=== PATIENT | female | born 2000 | race Caucasian/White ===

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

== ENCOUNTER → 2021-01-16 19:55 | Outpatient (CLI) | payer BC, SELFPAY | PROVIDERS: Visit Provider Nurse Practitioner Family | DX: Z20.822 Contact with and (suspected) exposure to COVID-19 (principal); J02.9 Acute pharyngitis, unspecified | CPT/HCPCS: C9803; U0003; U0005 ==

== ENCOUNTER → 2021-04-29 16:26 | Outpatient (CLI) | payer BC, SELFPAY ==
[2021-04-29 17:15] LABS: Basophils # 0.1 K/mm3 (0-0.2); Basophils % 0.5 % (0.1-2.0); Eosinophils # 0.1 K/mm3 (0.0-0.4); Eosinophils % 0.8 % (0.1-12.0); Hematocrit 42.3 % (37.0-47.0); Hemoglobin 13.4 g/dL (12.2-16.2); Lymphocytes # 3.1 K/mm3 (0.7-4.5); Lymphocytes % 29.1 % (10-50); Mean Corpuscular HGB Conc 31.8 g/dL (31.8-35.4); Mean Corpuscular Hemoglobin 29.8 pg (27.0-31.2); Mean Corpuscular Volume 93.9 fl (81-99); Mean Platelet Volume 7.5 fl (7.4-10.4); Monocytes # 0.4 K/mm3 (0.1-1.0); Monocytes % 3.7 % (1.7-9.3); Neutrophils # 7.1 K/mm3 (1.8-7.8); Neutrophils % 65.9 % (37.0-80.0); Platelet Count 328 K/mm3 (142-424); Red Cell Distribution Width 12.3 % (11.5-17.5); White Blood Count 10.8 K/mm3 (4.5-13.0)
[2021-05-01 10:14] LABS: HSV 1 IgG, Type Spec <0.91 index (0.00-0.90); HSV 2 IgG, Type Spec <0.91 index (0.00-0.90); Rubella Antibodies, IgG 3.17 index (Immune >0.99)
[2021-05-01 12:35] LABS: HIV Screen 4th Generation wRfx Non Reactive (Non Reactive); Hepatitis B Surface Antigen Negative (Negative); Hepatitis C Antibody <0.1 s/co ratio (0.0-0.9); Rapid Plasma Reagin Ab Titer Non Reactive (NonRea<1:1)
[2021-05-01 22:08] LABS: Neisseria gonorrhoeae, NAA Negative (Negative)
== END ==
PROVIDERS: PCP Nurse Practitioner Family; Visit Provider Nurse Practitioner Obstetrics & Gynecology
DX: Z72.51 High risk heterosexual behavior (principal)
CPT/HCPCS: 36415; 85025; 86592; 86695; 86703; 86762; 86790; 86850; 87340; 87380; 87491; 87591; G0432

== ENCOUNTER 2021-11-30 15:49 | Emergency (ER) | payer OTHER, BC, SELFPAY ==
[2021-11-30 15:51] VITALS: BP 130/68; PULSE 77; RESP 16; TEMP 37.1; O2SAT 98; BMI 20.4
[2021-11-30 16:15] VITALS: BMI 18.3
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
[2021-11-30 16:30] VITALS: BP 123/63; PULSE 68; RESP 20
--- NOTE | 2021-11-30 16:58 | PC.NURSE ---
pt given ice packs for wrist pain
[2021-11-30 17:00] VITALS: BP 106/60; PULSE 75; RESP 20
[2021-11-30 17:30] VITALS: BP 116/64; PULSE 72; RESP 20; O2SAT 98
[2021-11-30 18:00] VITALS: BP 102/63; PULSE 66; RESP 20; O2SAT 98
--- NOTE | 2021-11-30 18:00 | PC.NURSE ---
dsd applied to lt wrist
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
[2021-11-30 18:57] VITALS: BP 112/65; PULSE 78; RESP 16; TEMP 36.7; O2SAT 97
== END 2021-11-30 18:59 | disposition home or self-care (01) ==
PROVIDERS: Emergency Provider Emergency Medicine; PCP Nurse Practitioner Family
DX: S60.211A Contusion of right wrist, initial encounter (principal); S60.212A Contusion of left wrist, initial encounter; S60.221A Contusion of right hand, initial encounter; T23.272A Burn of second degree of left wrist, initial encounter; T31.0 Burns involving less than 10% of body surface; V47.0XXA Car driver injured in collision with fixed or stationary object in nontraffic accident, initial encounter; W22.11XA Striking against or struck by driver side automobile airbag, initial encounter; Y93.C2 Activity, hand held interactive electronic device
CPT/HCPCS: 73110; 73130; 99283

== ENCOUNTER 2021-12-02 10:29 | Emergency (ER) | payer OTHER, BC, SELFPAY ==
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
[2021-12-02 11:00] VITALS: BP 112/70; PULSE 120; RESP 18; TEMP 38.7; O2SAT 99; BMI 18.3
[2021-12-02 11:34] LABS: UTC Strep Screen (Rapid) Negative (Negative)
[2021-12-02 11:44] VITALS: BP 112/70; PULSE 120; RESP 18; TEMP 38.7; O2SAT 99
== END 2021-12-02 11:50 | disposition home or self-care (01) ==
PROVIDERS: Emergency Provider Nurse Practitioner Family; PCP Nurse Practitioner Family
DX: T23.272D Burn of second degree of left wrist, subsequent encounter (principal); T31.0 Burns involving less than 10% of body surface; B34.9 Viral infection, unspecified; V89.2XXD Person injured in unspecified motor-vehicle accident, traffic, subsequent encounter
CPT/HCPCS: 87880; 99212; C9803; G0463; U0003; U0005

== ENCOUNTER 2023-03-22 13:57 | Outpatient (CLI) | payer BC, SELFPAY | END 2023-03-22 23:59 | LOC: LAB.DROPOF 13:58 | PROVIDERS: PCP Nurse Practitioner Family; Visit Provider Nurse Practitioner Family | DX: J02.9 Acute pharyngitis, unspecified (principal) | CPT/HCPCS: 87070 ==

== ENCOUNTER 2023-04-24 15:17 | Outpatient (CLI) | payer BC, MEDICAID, SELFPAY ==
[2023-04-27 12:30] LABS: Hepatitis C Antibody Non Reactive
[2023-04-27 12:31] LABS: HSV 1 IgG, Type Spec <0.91
[2023-04-27 12:32] LABS: HSV 2 IgG, Type Spec <0.91
[2023-04-27 12:33] LABS: HIV Screen 4th Generation wRfx Non Reactive
[2023-04-27 12:40] LABS: Rapid Plasma Reagin Ab Titer Non Reactive titer (NonRea<1:1)
== END 2023-04-24 23:59 ==
LOC: LAB 15:18
PROVIDERS: PCP Nurse Practitioner Obstetrics & Gynecology; Visit Provider Nurse Practitioner Obstetrics & Gynecology
DX: Z11.3 Encounter for screening for infections with a predominantly sexual mode of transmission (principal); Z20.2 Contact with and (suspected) exposure to infections with a predominantly sexual mode of transmission
CPT/HCPCS: 36415; 86593; 86695; 86703; 86790; 87380; G0432

== ENCOUNTER 2023-09-14 15:37 | Outpatient (CLI) | payer BC, MEDICAID, SELFPAY ==
[2023-09-14 13:17] LABS: Basophils # 0.1 K/mm3 (0-0.2); Basophils % 0.9 % (0.1-2.0); Eosinophils # 0.1 K/mm3 (0.0-0.4); Eosinophils % 1.6 % (0.1-12.0); Hematocrit 39.2 % (37.0-47.0); Hemoglobin 13.1 g/dL (12.2-16.2); Lymphocytes # 2.3 K/mm3 (0.7-4.5); Lymphocytes % 31.1 % (10-50); Mean Corpuscular HGB Conc 33.4 g/dL (31.8-35.4); Mean Corpuscular Hemoglobin 30.8 pg (27.0-31.2); Mean Corpuscular Volume 92.3 fl (81-99); Mean Platelet Volume 8.7 fl (7.4-10.4); Monocytes # 0.3 K/mm3 (0.1-1.0); Monocytes % 4.6 % (1.7-9.3); Neutrophils # 4.5 K/mm3 (1.8-7.8); Neutrophils % 61.8 % (37.0-80.0); Platelet Count 214 K/mm3 (142-424); Red Blood Count 4.24 M/mm3 (4.20-5.40); White Blood Count 7.3 K/mm3 (4.8-10.8)
[2023-09-14 13:39] LABS: Alanine Aminotransferase 15 U/L (12-78); Albumin Level 4.2 g/dl (3.5-5.0); Albumin/Globulin Ratio 1.8 (1.1-1.8); Alkaline Phosphatase 52 U/L (38-126); Anion Gap 8.3 mEq/L (5-15); Aspartate Amino Transferase 23 U/L (14-36); Bilirubin,Total 0.3 mg/dl (0.2-1.3); Blood Urea Nitrogen 8 mg/dl (7-17); Calcium 9.6 mg/dl (8.4-10.2); Carbon Dioxide 28 mmol/L (22.0-30.0); Chloride 107 mmol/L (98-107); Estimated Glomerular Filt Rate 125 ml/min (>60); GFR (African American) 151 ML/MIN (>60); Globulin 2.3 g/dL (1.3-3.2); Glucose 76 mg/dl (74-100); Potassium 4.3 mmoL/L (3.5-5.1); Sodium 139 mmol/L (136-145); Total Protein,Serum 6.5 g/dl (6.3-8.2)
[2023-09-14 15:43] LABS: Ferritin 31.4 ng/ml (6.24-137)
[2023-09-15 10:19] LABS: Thyroid Stimulating Hormone 1.33 uIU/mL (0.465-4.68)
== END 2023-09-14 23:59 | disposition home or self-care (01) ==
LOC: LAB.DROPOF 15:37
PROVIDERS: PCP Nurse Practitioner Family; Visit Provider Nurse Practitioner Family
DX: R00.2 Palpitations (principal); R53.83 Other fatigue
CPT/HCPCS: 80050; 80053; 82728; 83735; 84443; 85025

== ENCOUNTER 2024-01-24 13:14 | Emergency (ER) | payer BC, MEDICAID, SELFPAY ==
[2024-01-24 13:30] VITALS: BP 116/64; PULSE 69; RESP 18; TEMP 36.6; O2SAT 98; BMI 16.6
--- NOTE | 2024-01-24 13:44 | EXP.UTC ---
Discharge Plan Disposition Patient Disposition: Home, Self-Care Condition: Good Prescriptions Prescriptions: No Action buspirone 10 mg tablet 20 mg PO TID 30 Days Qty: 180 2RF propranolol 10 mg tablet 10 mg PO escitalopram oxalate [Lexapro] 10 mg tablet 10 mg PO DAILY Qty: 30 2RF quetiapine 50 mg tablet 50 mg PO HS 30 Days Qty: 30 2RF Referrals Follow up/Referrals: Joan Calloway APRN [Primary Care Provider] - See instructions Activity Restrictions/Add. Instructions Additional Instructions/Restrictions: Over the counter Pepto Bismuth may help with nausea Make sure to drink plenty of fluids Follow up with your Family Doctor if no improvement Clinical Impressions Clinical Impression: Nausea Stand Alone Forms Stand Alone Forms: Work/School Release Instructions Patient Instructions: Bismuth Subsalicylate Print Language Print Language: Serbian Discharge ED Provider: Jody Denise [facility] [place] HPI General Stated complaint: stomach pain weakness Mode of Arrival: Ambulatory Source of Information: Patient Limitations: No Limitations Time Seen by Provider: 01/24/24 13:44 Description of Symptoms (Recalled from Triage Doc. by RN): Patient reports nausea, stomach ache and fatigue. HEENT Symptoms (Recalled from RN notes): No Resp Symptoms (Recalled from RN notes): No Skin Symptoms (Recalled from RN notes): No MS Symptoms (Recalled from RN notes): No Functional Status (Recalled from RN notes): wnl History of Present Illness Provider Complaint: Patient states that she feels like she may have a stomach bug States that she has been having some nausea like she is going to throw up and a little cramping like she is going to have diarrhea but hasnt had any diarrhea yet and feeling a little achy and fatigue States that she wasnt able to go to work this morning and needs a note Related Data Home Medications ?Medication ?Instructions ?Recorded ?Confirmed propranolol 10 mg tablet 10 mg PO 09/14/23 09/14/23 Previous Rx's ?Medication ?Instructions ?Recorded buspirone 10 mg tablet 20 mg (2 x 10 mg) PO TID 30 days 02/15/23 #180 tabs escitalopram oxalate 10 mg tablet 10 mg PO DAILY #30 tabs 09/14/23 (Lexapro) quetiapine 50 mg tablet 50 mg PO HS 30 days #30 tabs 12/14/23 Allergies Allergy/AdvReac Type Severity Reaction Status Date / Time No Known Allergies Allergy Verified 11/10/23 13:06 Worker's Comp Is this a Worker's Comp case?: No [facility] Disclaimer: The information contained in this section may have been updated after the patient was seen, as this information can be updated by other users. Medical History (Updated 01/24/24 @ 13:58 by Jody Denise APRN) Tetanus toxoid vaccination administered at current visit Surgical History History of placement of ear tubes S/P tonsillectomy and adenoidectomy Social History (Updated 09/14/23 @ 11:36 by MARCIE Berry) Smoking Status: Current some day smoker tobacco type: e-cigarettes second hand exposure: No alcohol intake: never substance use type: denies use current occupational status: unemployed Travel in the last 8 weeks: None household members: family housing: house number of children: 0 current occupation: [employer] [place] Obtained: Yes All systems reviewed & no additional complaints except as documented and Yes Systems reviewed as appropriate & no additional complaints except as documented Constitutional Constitutional: Reports system reviewed and no additional complaints, except as documented and Reports as per HPI ENT Ears, Nose, Mouth, and Throat: Reports system reviewed and no additional complaints, except as documented and Reports as per HPI Cardiovascular Cardiovascular: Reports system reviewed and no additional complaints, except as documented and Reports as per HPI Respiratory Respiratory: Reports system reviewed and no additional complaints, except as documented and Reports as per HPI Gastrointestinal Gastrointestingal: Reports system reviewed and no additional complaints, except as documented, as per HPI, cramping, nausea and vomiting (feels like she is going to vomit); Denies abdominal pain Genitourinary Female Genitourinary: Reports system reviewed and no additional complaints, except as documented, Reports as per HPI and Reports other (reports last period a little over a week ago denies ) Musculoskeletal Musculoskeletal: Reports system reviewed and no additional complaints, except as documented and Reports as per HPI Physical Exam General General appearance: alert and in no apparent distress ENT ENT exam: Present normal exam, normal oropharynx and mucous membranes moist Respiratory Respiratory exam: Present normal lung sounds bilaterally; Absent respiratory distress or wheezes Cardiovascular Cardiovascular exam: Present regular rate, normal rhythm and normal heart sounds Abdominal Exam Abdominal exam: Present soft and normal bowel sounds; Absent distention, tenderness, guarding or rebound Neurological Exam Neurological exam: Present alert, oriented X3 and normal gait Medical Decision Making Medical Records Screening: Per USPSTF and CDC recommendations, given the prevalence of disease in our region, it is our hospital?s policy to screen for HIV and viral Hepatitis for all patients aged 18 and over and those with ongoing risk factors. Jason Inquiry Pt receiving controlled substance: No Jason was queried for this patient: No Vital Signs: 01/24/24 13:30 Temperature 97.9 F Temperature Source Oral Pulse Rate [Radial] 69 Respiratory Rate 18 Blood Pressure [Right Arm] 116/64 Blood Pressure Mean [Right Arm] 81 Blood Pressure Source [Right Arm] Automatic Cuff Blood Pressure Position [Right Arm] Sitting 02 Sat by Pulse Oximetry 98 Oxygen Delivery Method Room Air
[2024-01-24 14:09] VITALS: BP 116/64; PULSE 69; RESP 18; TEMP 36.6; O2SAT 98
== END 2024-01-24 14:10 | disposition home or self-care (01) ==
PROVIDERS: Emergency Provider Nurse Practitioner; PCP Nurse Practitioner Family
DX: R11.0 Nausea (principal); R53.83 Other fatigue; R19.7 Diarrhea, unspecified
CPT/HCPCS: 99212; G0381

== ENCOUNTER 2024-09-28 19:48 | Emergency (ER) | payer MEDICAID, SELFPAY ==
--- OUTSIDE RECORDS SUMMARY | 2024-05-24 07:24 | XMS_ITS ---
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 Role Phone Chanda Baumann Unavailable [phone] Allergies No Known Allergies REASON FOR VISIT Refills Medications Medication SIG (Take, Route, Frequency, Duration) Notes Start Date End Date Status Cyproheptadine HCl 4 MG 1 tablet Orally Twice a day for 30 days SC 07/23/2024 Active Social History Sex Assigned At : Social History Observation Description Sex Assigned At Female Encounters Encounter Location Date Provider Diagnosis [facility] [address] [address] 05/24/2024 Chanda Baumann Body mass index [BMI] 19.9 or less, adult Z68.1 Assessments Encounter Date Diagnosis (ICD Code) Assessment Notes Treatment Notes Treatment Clinical Notes Section Notes 05/24/2024 Body mass index [BMI] 19.9 or less, adult (ICD-10 - Z68.1) Plan Of Treatment Medication Medication Name Sig Start Date Stop Date Notes Cyproheptadine HCl 4 MG 1 tablet Orally Twice a day for 30 days 07/23/2024 [facility] Notes * Geovanna HEATH MDOB:[birth year] (24 yo F)Acc No.[id number]:05/24/2024 Patient: Stefani Geovanna PATRICIA :2000 A ge:24 Y S ex:Female Address:[place], [address] * Refills Refill Cyproheptadine HCl Tablet, 4 MG, Orally, 60 Tablet, 1 tablet, Twice a day, 30 days, Refills=1 Subjective: * Chief Complaints: * R efills * Medical History: * Surgical History: * Hospitalization/Major Diagno stic Procedure: * Medications: * Allergies: N .K.D.A.no[Allergies Verified] Objective: * Vitals: * Physical Examination: Assessment: * Assessment: 1. B richard mass index [BMI] 19.9 or less, adult - Z68.1 Plan: * Treatment: * Procedure Codes: * * Date:
[2024-09-28] VITALS (9 sets, daily range): BP systolic 95–135; BP diastolic 52–87; PULSE 65–87; RESP 14–22; TEMP 36.7–37.2; O2SAT 96–100; BMI 18.3
--- NOTE | 2024-09-28 19:52 | ECG_ITS ---
APPROVED REPORT Exam: Resting ECG HR:70 bpm ECG Measurements Heart Rate 70 AXES QRSd 86 QRS 87 QT 385 T 65 QTc 405 Conclusion normal sinus rhythm Electronically signed by : DELFINO CLEVELAND, 09/28/2024 21:00:55
--- NOTE | 2024-09-28 19:54 | HMH.EDGENADL ---
Discharge Plan Disposition Patient Disposition: Home, Self-Care Condition: Good Prescriptions Prescriptions: No Action propranolol 10 mg tablet See Rx Instructions .ROUTE .COMPLEX Rx Instructions: 1 per day cyproheptadine 4 mg tablet 4 mg PO BID buspirone 10 mg tablet 10 mg PO TID Qty: 270 0RF lamotrigine [Lamictal] 25 mg tablet 50 mg PO DAILY Qty: 180 0RF Rx Instructions: Take two tablets daily. If you develop a rash, stop the medication, and call the clinic. escitalopram oxalate [Lexapro] 10 mg tablet 10 mg PO DAILY Qty: 30 3RF quetiapine [Seroquel] 50 mg tablet 50 mg PO HS Referrals Follow up/Referrals: Provider,Referral, MD [Primary Care Provider, Medical] - See instructions Activity Restrictions/Add. Instructions Additional Instructions/Restrictions: You were evaluated in the emergency department today. At this time, your potassium is a little bit low, but otherwise your workup is reassuring. Please follow-up closely with your primary care provider. Make sure you stay hydrated. Avoid substance use. Return to the emergency department for new or worsening symptoms. Clinical Impressions Clinical Impression: Syncope, Tetrahydrocannabinol (THC) use disorder, mild, abuse, Hypokalemia Stand Alone Forms Stand Alone Forms: Work/School Release Instructions Patient Instructions: DI for Syncope in Adults (Fainting), DI for Hypokalemia Print Language Print Language: Kazakh Discharge ED Provider: Sun Freeman General Adult HPI General Chief complaint: Syncope Stated complaint: Syncopal episode after THC use Time Seen by Provider: 09/28/24 19:49 History of Present Illness HPI narrative: This patient is a 24-year-old female with a history of opioid use disorder who graduated from drug court earlier today, history of depression/anxiety, bipolar disorder managed on Seroquel, BuSpar, Lexapro, lamotrigine, and propranolol presented to the emergency department for evaluation with concern for syncopal episode. Patient was reportedly sitting at a pub with her father when she passed out. She was using a THC vape but denies any alcohol or drug use. She denies any prodrome of symptoms such as headache, vision changes, chest pain, shortness of breath, abdominal pain, nausea, vomiting, changes to bowel movements, numbness, tingling, calf pain or swelling, or other concerns. She states that right now her only symptom is feeling cold. According to EMS, the syncopal episode was witnessed. No seizure activity noted. She notes her last menstrual period was last week and was normal for her. She denies any concern she can be . Related Data Home Medications ?Medication ?Instructions ?Recorded ?Confirmed cyproheptadine 4 mg tablet 4 mg PO BID 07/24/24 09/28/24 propranolol 10 mg tablet See Rx Instructions .Route .COMPLEX 07/24/24 09/28/24 quetiapine 50 mg tablet (Seroquel) 50 mg PO HS 09/28/24 09/28/24 Previous Rx's ?Medication ?Instructions ?Recorded buspirone 10 mg tablet 10 mg PO TID #270 tabs 07/24/24 lamotrigine 25 mg tablet (Lamictal) 50 mg (2 x 25 mg) PO DAILY #180 07/24/24 tabs escitalopram oxalate 10 mg tablet 10 mg PO DAILY #30 tabs 09/25/24 (Lexapro) Allergies Allergy/AdvReac Type Severity Reaction Status Date / Time No Known Allergies Allergy Verified 09/25/24 09:12 [facility] Disclaimer: The information contained in this section may have been updated after the patient was seen, as this information can be updated by other users. Medical History Tetanus toxoid vaccination administered at current visit Surgical History History of placement of ear tubes S/P tonsillectomy and adenoidectomy Family History Family/Other No significant family history Social History Smoking Status: Current every day smoker tobacco type: e-cigarettes second hand exposure: No alcohol intake: never substance use type: marijuana, crack/cocaine and opiates counseling given: Yes current occupational status: employed Travel in the last 8 weeks?: None adopted: No household members: family housing: house lives independently: No marital status: single number of children: 0 education level: high school service: No current occupation: [employer] Recent Travel: No Have you lived/traveled outside US in past 30 days?: No Contact w/someone who lives/traveled outside US past 30 days?: No Exposure to someone with infectious disease in past 14 days?: No Do you have a fever (greater than 100.4 F or 38 C)?: No Have you tested positive for COVID-19?: No Exposed to someone with COVID-19 in past 14 days?: No Do you have a sore throat?: No Do you have a cough?: No Do you have any weakness?: No Do you have any diarrhea?: No Are you experiencing any unusual bleeding?: No Do you have any muscle aches/pain?: No Do you have any abdominal pain?: No Are you experiencing loss of taste or smell?: No Other Medical History Have you received the Flu Vaccine for this season: No Have you received the Pneumonia Vaccine: No ROS Obtained: Yes All systems reviewed & no additional complaints except as documented Physical Exam General General appearance: alert and in no apparent distress Head Head exam: atraumatic and normocephalic Eye Eye exam: Present normal appearance, PERRL and EOMI ENT ENT exam: Present normal exam, normal oropharynx, mucous membranes moist and normal external ear exam Neck Neck exam: Present normal inspection, full ROM and trachea midline; Absent tenderness Chest Chest inspection: Present normal inspection and symmetric chest wall rise; Absent tenderness Respiratory Respiratory exam: Present normal lung sounds bilaterally; Absent respiratory distress, wheezes, stridor or accessory muscle use Cardiovascular Cardiovascular exam: Present regular rate and normal rhythm Abdominal Exam Abdominal exam: Present soft; Absent distention, tenderness or guarding Extremities Exam Extremities exam: Present normal inspection, full ROM and normal capillary refill; Absent tenderness or edema Back Exam Back exam: Present normal inspection and full ROM; Absent tenderness Neurological Exam Neurological exam: Present alert, oriented X3, CN II-XII intact and normal gait; Absent motor sensory deficit Psychiatric Psychiatric exam: Present normal affect and normal mood Skin Skin exam: Present warm and dry Medical Decision Making Medical Records Medical records reviewed: Yes I reviewed the patient's medical records. Screening: Per USPSTF and CDC recommendations, given the prevalence of disease in our region, it is our hospital?s policy to screen for HIV and viral Hepatitis for all patients aged 18 and over and those with ongoing risk factors. Jason Inquiry Pt receiving controlled substance: No Vital Signs: 09/28/24 19:48 09/28/24 20:00 09/28/24 20:08 Temperature 98.1 F Temperature Source Oral Pulse Rate 78 68 Pulse Rate [Orthostatic Lying Right] Pulse Rate [Orthostatic Sitting Right] Pulse Rate [Orthostatic Standing Right] Pulse Rate [Right] 87 Respiratory Rate 18 16 16 Blood Pressure 108/82 L 113/82 Blood Pressure [Left Arm] 120/72 Blood Pressure [Orthostatic Lying Right Arm] Blood Pressure [Orthostatic Sitting Right Arm] Blood Pressure [Orthostatic Standing Right Arm] Blood Pressure Mean [Left Arm] 88 Blood Pressure Position 02 Sat by Pulse Oximetry 99 100 100 Oxygen Delivery Method Room Air 09/28/24 20:11 09/28/24 20:12 09/28/24 20:14 Temperature Temperature Source Pulse Rate 74 77 Pulse Rate [Orthostatic Lying Right] 67 Pulse Rate [Orthostatic Sitting Right] 73 Pulse Rate [Orthostatic Standing Right] 71 Pulse Rate [Right] Respiratory Rate 22 19 Blood Pressure 124/87 135/87 Blood Pressure [Left Arm] Blood Pressure [Orthostatic Lying Right Arm] 113/82 Blood Pressure [Orthostatic Sitting Right Arm] 124/87 Blood Pressure [Orthostatic Standing Right Arm] 135/87 Blood Pressure Mean [Left Arm] Blood Pressure Position 02 Sat by Pulse Oximetry 99 98 Oxygen Delivery Method 09/28/24 20:30 09/28/24 21:00 09/28/24 22:19 Temperature 98.9 F Temperature Source Oral Pulse Rate 65 80 73 Pulse Rate [Orthostatic Lying Right] Pulse Rate [Orthostatic Sitting Right] Pulse Rate [Orthostatic Standing Right] Pulse Rate [Right] Respiratory Rate 15 19 14 Blood Pressure 109/76 L 118/77 95/52 L Blood Pressure [Left Arm] Blood Pressure [Orthostatic Lying Right Arm] Blood Pressure [Orthostatic Sitting Right Arm] Blood Pressure [Orthostatic Standing Right Arm] Blood Pressure Mean [Left Arm] Blood Pressure Position Sitting 02 Sat by Pulse Oximetry 100 100 Oxygen Delivery Method Room Air Lab Data Lab results reviewed: Yes I reviewed the patient's lab results. Lab Results 09/28/24 19:40: WBC 10.0, RBC 3.99 L, Hgb 12.1 L, Hct 35.6 L, MCV 89.2, MCH 30.3, MCHC 34.0, RDW 11.9, Plt Count 309, MPV 9.9, Neut % (Auto) 41.7, Lymph % (Auto) 50.7 H, Floyd % (Auto) 5.7, Eos % (Auto) 1.1, Baso % (Auto) 0.6, Neut # (Auto) 4.2, Lymph # (Auto) 5.1 H, Floyd # (Auto) 0.6, Eos # (Auto) 0.1, Baso # (Auto) 0.1, Total Counted 100, Neutrophils % (Manual) 39 L, Lymphocytes % (Manual) 55 H, Monocytes % (Manual) 3, Eosinophils % (Manual) 3, Platelet Estimate Normal, Poikilocytosis 1+, Anisocytosis 1+, Microcytosis 1+, Macrocytosis 1+, Ovalocytes 1+, D-Dimer < 0.25, Sodium 139, Potassium 3.0 L, Chloride 102, Carbon Dioxide 22, Anion Gap 18.0 H, BUN 8, Creatinine 0.70, Estimated Creat Clear 98, Estimated GFR 104, Est GFR ( Amer) 125, Glucose 121 H, Calcium 9.6, Total Bilirubin 0.3, AST 24, ALT 18, Alkaline Phosphatase 51, Troponin I < 0.01, Total Protein 7.3, Albumin 4.8, Globulin 2.5, Albumin/Globulin Ratio 1.9 H, TSH 3.67, Thyroxine (T4) 8.2, Serum HCG, Qual Negative, Plasma/Serum Alcohol < 10, HCV Ab FELI w/Rflx PCR Qn Negative, HIV Ag/Ab Combo Qual Negative 09/28/24 20:54: Urine Color Yellow, Urine Appearance Clear, Urine pH 8.0, Ur Specific Marked Tree 1.015, Urine Protein Negative, Urine Glucose (UA) Negative, Urine Ketones Negative, Urine Blood Trace-l, Urine Nitrate Negative, Urine Bilirubin Negative, Urine Urobilinogen 0.2, Ur Leukocyte Esterase Negative, Urine RBC 3-5, Urine WBC 3-5, Ur Squamous Epith Cells 10-20, Amorphous Sediment 1+, Urine Bacteria 1+, Urine Opiates Screen Negative, Urine Methadone Screen Negative, Ur Barbituates Screen Negative, Ur Phencyclidine Scrn Negative, Ur Amphetamines Screen Negative, U Benzodiazepines Scrn Negative, Urine Cocaine Screen Negative, U Marijuana (THC) Screen Positive H 09/28/24 19:40 09/28/24 19:40 Orders (Tests/Meds): ED MEDICATIONS Discontinued Medications Generic Name Dose Route Start Last Admin Trade Name Cecilioq PRN Reason Stop Dose Admin Lactated Ringer's 1,000 mls @ 999 mls/hr 09/28/24 19:51 09/28/24 20:08 Lactated Ringer's 1000 Ml Bag IV 09/28/24 20:51 999 mls/hr .Q1H1M ONE Administration Potassium Chloride/Water 100 mls @ 100 mls/hr 09/28/24 20:43 09/28/24 20:50 Potassium Chloride 10meq/100ml Ivpb IV 09/28/24 21:42 100 mls/hr ONCE ONE Administration Potassium Chloride 40 meq 09/28/24 20:43 09/28/24 20:49 Potassium Chloride 20meq Tab PO 09/28/24 20:44 40 meq ONCE ONE Administration ORDERS Category Date Time Status CBC w/Auto Diff [Complete Blood Count Auto Diff] Stat Lab 09/28/24 19:40 Completed CMP [Comprehensive Metabolic Panel] Stat Lab 09/28/24 19:40 Completed D-Dimer Stat Lab 09/28/24 19:40 Completed Ethanol [Ethyl Alcohol] Stat Lab 09/28/24 19:40 Completed HIV Combo Stat Lab 09/28/24 19:40 Completed Hepatitis C Ab Qual. W/ RFX Stat Lab 09/28/24 19:40 Completed Serum [HCG Qualitative, Serum] Stat Lab 09/28/24 19:40 Completed T4 (Thyroxine) Stat Lab 09/28/24 19:40 Completed TSH [Thyroid Stimulating Hormone] Stat Lab 09/28/24 19:40 Completed Trop I [Troponin I] Stat Lab 09/28/24 19:40 Completed UA [Urinalysis and Microscopic] Stat Lab 09/28/24 20:54 Completed UDS [Drug Screen,Urine] Stat Lab 09/28/24 20:54 Completed ECG Data Tracing #1: I reviewed this ECG and interpreted as documented below: Normal sinus rhythm with a ventricular rate of [address] changes concerning for ischemia. Normal axis and intervals. Some motion artifact ECG initial impression date: 09/28/24 ECG initial impression time: 19:54 Medical Decision Narrative: In summary, this patient is a 24-year-old female presenting to the Emergency Department for evaluation of syncope. Differential diagnoses considered include but are not limited to ACS, dysrhythmia, PE, orthostatic hypotension, vasovagal syncope, THC toxicity. Ruling out the most morbid conditions drove assessment. It should be noted patient's history includes substance use, depression anxiety, bipolar disorder which may or may not be at goal therapy. This complicates all aspects of care by increasing patient's risk for morbidity. I reviewed patient's past medical records and noted prior evaluations by [facility] for maintenance of health as detailed in HPI. On exam, the patient is lying in bed in no acute distress with no concerns or complaints except for feeling cold at this time. Vitals are normal on cardiac telemetry. EKG obtained is reassuring. Workup included CBC, CMP, TSH, T4, troponin, D-dimer, test, ethanol level, urinalysis, urine drug screen. She was given a bolus of IV fluids. Labs obtained are reassuring with very mild anemia, no indication for transfusion. Patient does have hypokalemia for which IV and oral repletion was ordered. Anion gap is very mildly elevated. She was given a bolus of IV fluids as well. No other acute concerning abnormalities noted on labs. Urinalysis is contaminated with squamous cells but does not appear concerning for infection. UDS is positive for marijuana. On multiple subsequent reassessments, she is resting comfortably in no acute distress with no recurrence of symptoms and normal vitals on cardiac telemetry. Given this, it is felt that she is appropriate for discharge home with close PCP follow-up and strict return precautions Critical Care Critical Care Time Critical Care Time: Yes Attestation: On 09/28/24, the high probability of a clinically significant, sudden or life threatening deterioration of the following system(s) required my full and direct attention, intervention and personal management. The time I documented below is in addition to time spent performing reported procedures but includes the following listed in this critical care notation. Total Time Total Critical Care Time: 35
--- OUTSIDE RECORDS SUMMARY | 2024-09-28 19:57 | XMS_ITS | Clinical Summary ---
Author Organization Healthcare Address [address] [place] [address] Care Team Providers Care Java Web Engineer Name Role Phone Joan Calloway APRN Primary Care Provider [phone] Allergies No known active allergies Social History Tobacco Use Types Packs/Day Years Used Date Smoking Tobacco: Never Comments Unknown Sex and Gender Information Value Date Recorded Sex Assigned at Not on file Legal Sex Female 6:06 PM EDT Gender Identity Not on file Sexual Orientation Not on file Last Filed Vital Signs Vital Sign Reading Time Taken Comments Blood Pressure 124/82 11/01/2021 10:59 AM EDT Pulse 98 11/01/2021 10:59 AM EDT Temperature 37.2 C (99 F) 11/01/2021 10:59 AM EDT Respiratory Rate 16 11/01/2021 10:59 AM EDT Oxygen Saturation 98% 11/01/2021 10:59 AM EDT Inhaled Oxygen Concentration - - Weight 44.9 kg (99 lb) 11/01/2021 7:03 AM EDT Height 162.6 cm (5' 4 ) 11/01/2021 7:03 AM EDT Body Mass Index 16.99 11/01/2021 7:03 AM EDT Plan of Treatment Health Maintenance Due Date Last Done Comments [facility]-Depression Screening 2001 [facility]-HIV Screening 2001 [facility]-Hepatitis C Screening 2001 [facility]-Infant/Child/Adol SDOH Screenings 2001 [facility]-Varicella Vaccines (1 of 2 - 13+ 2-dose series) 2014 HPV Vaccines (1 - 3-dose series) 2016 [facility]- SDOH Screenings 2019 [facility]-Adult SDOH Screenings 2019 [facility]-DTaP,Tdap,and Td Vaccine s (1 - Tdap) 2020 [facility]-Hepatitis B Vaccines (1 of 3 - 19+ 3-dose series) 2020 [facility]-Pap Smear 2022 [id number]-[id number]-67 Vaccine (2 - 20 24- season) 2023 08/15/2020 [facility]-Influenza Vaccine (#1) 2024 [facility]-Zoster Vaccines (1 of 2) 2051 [facility]-HIB Vaccines Aged Out No longer e ligible based on patient's age to complete this topic [facility]-Hepatitis A Vaccines Aged Out No longer eligible based on patient's age to complete this topic [facility]-IPV Vaccines Aged Out No longer e ligible based on patient's age to complete this topic [facility]-Pneumococcal Vaccine: Pediatrics (0 to 5 Years) and At-Risk Patients (6 to 49 Years) Aged Out No long er eligible based on patient's age to complete this topic [facility]-Rotavirus Vaccines Aged Out No lo nger eligible based on patient's age to complete this topic Insurance [facility] [employer] Care Teams Java Web Engineer Relationship Specialty Start Date End Date Joan Calloway APRN [address] [place] [address] PCP - General 07/26/20
--- OUTSIDE RECORDS SUMMARY | 2024-09-28 19:57 | XMS_ITS | Data Portability ---
Author Organization [facility] Address [address] [place] [address] Assessment No assessment recorded. Plan of Treatment Reminders Order Date Submit Date Provider Last Modified By Organization Details Last Modified Time Details Appointments None recorded. Lab rapid strep group A, throat [address], [address], 4 11:55:12 rapid SARS CoV 2 Ag, QL, [place], upper respiratory specimen [address], [address], 4 11:55:12 rapid flu (A+B) [address], [address], 4 11:55:12 Referral None recorded. Procedures None recorded. Surgeries None recorded. Imaging None recorded. Medication Orders escitalopra m 20 mg tablet 2023 [facility], [address] [place] [address], [address], [address], 4 12:01:43 cefdinir 300 mg capsule 2023 [facility], [address] [place] [address], [address], [place], [address], 12:01:44 Patient TargetsNo targets recorded. Patient InstructionsNo instructions recorded. Reason for Referral None Reported. Results Created Date Observation Date Name Description Value Unit Range Abnormal Flag Note LastModifiedBy Organization Detail LastModifiedTime 02/07/2002/07/2024 rapid SARS CoV 2 Ag, QL, [place], upper respi rator y speci men SARS CoV Ag negati ve Not Available [address], [address], 02/07/2024 11:39:52 02/07/2002/07/2024 rapid flu (A+B) Flu A negati ve Not Available [address], [address], 02/07/2024 11:40:04 02/07/2002/07/2024 rapid flu (A+B) Flu B negati ve Not Available [address], [address], 02/07/2024 11:40:04 02/07/2002/07/2024 rapid strep group A, throa t Strep negati ve Not Available [address], [address], 02/07/2024 11:39:25 Result Notes None recorded. Procedures Surgical History Date Name Laterality Status Provider Name and Address Organization Details Recorded Time Tonsillectomy completed Sujey Granados [facility] [employer]. 02/07/2024 11:35:41 Imaging Results None recorded. Procedure Notes None recorded. Medical Equipment None Reported. Allergies No known drug allergies Medications Name Sig Start Date Stop Date Status Note LastModified by Organization Details LastModified Time cyproheptadi ne 4 mg tablet active Not Available Not Available Not Available propranolol 10 mg tablet active Not Available Not Available Not Available amoxicillin 875 mg tablet 02/06 completed Not Available Not Available Not Available buspirone 10 mg tablet 02/06 completed Not Available Not Available Not Available mirtazapine 15 mg tablet active Not Available Not Available Not Available cefdinir 300 mg capsule Take 1 capsule every 12 hours by oral route for 7 days. active Not Available Not Available No t Available escitalopram 10 mg tablet 02/06 completed Not Available Not Available Not Available escitalopram 20 mg tablet Take 1 tablet every day by oral route. active Not Available Not Available No t Available bupropion HCl XL 300 mg 24 hr tablet, extended release take 1 tablet by mouth once daily IN THE MORNING UNTIL FURTHER NOTICE 02/06 completed Not Available Not Available Not Available bupropion HCl XL 150 mg 24 hr tablet, extended release take 1 tablet by mouth every morning UNTIL FURTHER NOTICE active Not Available Not Available No t Available quetiapine 50 mg tablet active Not Available Not Available Not Available buprenorphin e 4 mg-naloxone [address] 1 FILM under the tongue twice a day until FURTHER NOTICE 02/06 completed Not Available Not Available Not Available buprenorphin e active Not Available Not Available Not Available Vitals Date Recorded Body height Body mass index (BMI) Body weight Body temperature Heart rate Oxygen saturation Oxygen saturation in Arterial blood by Pulse oximetry Systolic And Diastolic Provider Name and Address Organization Details Last Updated DateTime 165.1 cm 16.2 kg/m2 61220.5 6 g 98.5 [degF] 86 /min 98 % 98 % 106/69 mm[Hg] Sujey Moree [facility], [employer]. 11:34:40 Social History Question Answer Notes LastModified by Organizat ion Details LastModified Time Tobacco Smoking Status Former Smoker Sujey Granados [employer]. 02/07/2024 11:35:32 Do You Have An Advance Directive? No Information n ot available 02/07/2024 Is Your Home Air Conditioned? Yes Information not available 02/07/2024 If You Are , What Was Your Level Of Alcohol Consumption Prior To ? None Information not available 02/07/2024 Do You Wear A Helmet When Biking? No Information not available 02/07/2024 Are You Blind Or Do You Have Difficulty Seeing? No Information n ot available 02/07/2024 What Is Your Level Of Caffeine Consumption? Heavy Information not available 02/07/2024 What Type Of Body Cleaner Do You Use? None Information not available 02/07/2024 In The 14 Days Before Symptom Onset, Have You Had Close Contact With A Laboratory-confirm ed COVID-19 While That Case Was Ill? No Information n ot available 02/07/2024 In The 14 Days Before Symptom Onset, Have You Had Close Contact With A Person Who Is Under Investigation For COVID-19 While That Person Was Ill? No Information not available 02/07/2024 Have You Been To An Area Known To Be High Risk For COVID-19? No Information not available 02/07/2024 Are You Deaf Or Do You Have Serious Difficulty Hearing? No Information not available 02/07/2024 What Type Of Diet Are You Following? REGULAR Information n ot available 02/07/2024 Who Is Your Employer? [employer] Information not available 02/07/2024 Have There Been Any Changes To Your Family Or Social Situation? No Information no t available 02/07/2024 When Did You Quit Smoking? 1-5yearssinc elastcigaret te Information not available 02/07/2024 Are There Any Guns Present In Your Home? Yes Information not available 02/07/2024 Which Of Your Hands Is Dominant? Right Information n ot available 02/07/2024 What Is Your Home Situation? Both Parents Information not available 02/07/2024 Do You Have A Medical Power Of Marketing Technology Specialist? No Information not available 02/07/2024 What Was The Date Of Your Most Recent Tobacco Screening? 02/07/2024 Information not available 02/07/2024 Are There Any Occupational Health Risks Where You Work? No Information not available 02/07/2024 What Is Your Current Pack Years? 10packyears Information not available 02/07/2024 Do You Have Any Pets? Yes Information not available 02/07/2024 Do You Use Protection During Sex? Usually Information not available 02/07/2024 What Is Your Relationship Status? Single Information not available 02/07/2024 Have You Repeated Any Grades? No Information not available 02/07/2024 Do You Use Your Seat Belt Or Car Seat Routinely? Yes Information not available 02/07/2024 Are You Sexually Active? Yes Information not available 02/07/2024 Do You Have Any Siblings? 1 Brother Information not available 02/07/2024 Do You Have Smoke And Carbon Monoxide Detectors In Your Home? Yes Information not available 02/07/2024 At What Age Did You Start Smoking Tobacco? 17 Information not available 02/07/2024 Are You Passively Exposed To Smoke? No Information no t available 02/07/2024 Are There Any Smokers In Your House? No Information not available 02/07/2024 How Much Tobacco Do You Smoke? 1 PPD Information not available 02/07/2024 Do You Participate In Social Media? No Information not available 02/07/2024 Do You Use Sunscreen Routinely? No Information not available 02/07/2024 Has Tobacco Cessation Counseling Been Provided? Yes Information not available 02/07/2024 On What Date Was Tobacco Cessation Counseling Provided? 02/07/2024 Information not available 02/07/2024 How Many Years Have You Smoked Tobacco? 6 Information not available 02/07/2024 Have You Recently Traveled Abroad? No Information not available 02/07/2024 Do You Have Difficulty Walking Or Climbing Stairs? No Information not available 02/07/2024 Do You Have Any Dietary Restrictions? No Information not available 02/07/2024 Sex: Female Functional Status Question Answer Note LastModified by Organizat ion Details LastModified Time Do you use any illicit or recreational drugs? No Information not available 02/07/2024 Do you or have you ever used any other forms of tobacco or nicotine? Yes Information not available 02/07/2024 What is your level of alcohol consumption? None Information not available 02/07/2024 Are you currently employed? Yes Information not available 02/07/2024 Are you able to walk? YESWOREST Information not available 02/07/2024 Do you have difficulty doing errands alone? No Information not available 02/07/2024 Are you able to care for yourself? Yes Information not available 02/07/2024 Do you have difficulty dressing or bathing? No Information not available 02/07/2024 Do you or have you ever used e-cigarettes or vape? Current user of electronic cigarettes Information not available 02/07/2024 What is your exercise level? None Information not available 02/07/2024 Mental Status Question Answer Note LastModified by [employer] Details LastModified Time Do you feel stressed (tense, restless, nervous, or anxious, or unable to sleep at night)? [id number] Information not available 02/07/2024 Do you have difficulty concentrating, remembering or making decisions? No Information no t available 02/07/2024 Are you or have you been involved with bullying? No Information not available 02/07/2024 Family History Relationship Description Onset Age of this Age Resolved Age Notes LastModified by Organization Details LastModified Time Paternal Grandfather Harmful pattern of use of alcohol Not available 2023 11:34:50 Medical History Condition Response Anxiety Disorder Y Depression Y Gynecological History Statement/Question Response Flow Heavy Frequency of Cycle (Q days) 28 Menses Monthly Y Duration of Flow (days) 5 Current Control Method Condoms Age at Menarche 16 Desired Control Method Condoms Obstetrics History GPAL:G 0 P 0 0 0 0 Past Encounters Encounter ID Performer Location Encounter Start Date Encounter Closed Date Diagnosis/Indication Diagnosis SNOMED-CT Code Diagnosis ICD10 Code Diagnosis Note [id number] Krista Bradley APRN [address] [place] [address] 02/07/2024 11:14:11 02/07/2024 12:02:36 Streptococcal sore throat 67455987 J02.0 Acute sinusitis 91178827 J01.90 Moderate r ecurrent major depression 06446855 F33.1 Body mass index less than 16.5 544979439 Z68.1 Health Concerns Section Related Observation LastModified by Organization Detai ls LastModified Time None Recorded Concern Status LastModified by Organization Details LastModified Time None Recorded Advance Directives Directive N: Payers Insurance Date Sequence Insurance Name Policy Number Policy Jalloh Covered Member ID Jalloh Member ID Guarantor Name 02/07/2024 2 [facility] (MEDICAID REPLACEMENT - HMO) Geovanna Goode [id number] Geovanna Goode 02/07/2024 1 [place] [id number] Geovanna Goode [id number] Geovanna Goode Notes Date Note Type Note Provider Name and Address Organization Details Recorded Time 02/07/2024 text/html pt here today to est pcp. today pt c/o sore throat, runny nose, body aches, and ear pain x2 days. pt also states that she doesnt think her depression is working well anymore and would like it increased. rapid flu, covid and strep neg. on exam, right ear red, sinuses tender with clear drainage, throat WNL, lungs clear, pt appears ill. i will order abx. educated pt on new med. pt voiced understanding. increase fluids, tylenol/ibuprofen for pain/fever. return for worsening symptoms. pt states that she has been taking the lexapro for around a year and it worked well. now she has been having worsening symptoms of depression for the past several weeks. denies thoughts or plans of suicide. i will increase the lexapro to 20mg. Krista Bradley APRN [address] [facility], [place], [address], [facility] [place] [employer] 02/07/2024 12:18:40 OBGyn Episode No OBEpisode recorded.
--- OUTSIDE RECORDS SUMMARY | 2024-09-28 19:58 | XMS_ITS | Patient Health Record ---
Author Organization [facility] Address [address] [facility] [address] [place] [address] Care Team Providers Care Damage Assessor Name Role Phone Chanda Baumann Unavailable [phone] NakiaNereida mills Unavailable [phone] Cinda Parra Unavailable [phone] Allergies No Known Allergies Results Component Value Reference Range Notes Comprehensive Metabolic Pane l (CMP) Reviewed date:04/13/2024 12:05:04 PM Interpretation: Performing Lab: Notes/Report: Alanine Aminotransferase (ALT/SPGT) 17 0.0000 - 55.0000 U/L 17.0000 Albumin 4.7 3.4000 - 4.8000 g/dL 4.7000 Albumin/Globulin Ratio 2.0435 2.043 5 Alkaline Phosphate 53 40.0000 - 150.0000 U/L 53.0000 Anion Gap 7 7.0000 - 15.0000 7.0000 CO2 29 22.0000 - 31.000 0 mmol/L 29.0000 Creatinine 0.74 0.6000 - 1.2000 mg/dL 0.7400 eGFR 116.5656 0.0000 - 59.0000 mL/min/1.73m 116.5656 Globulin 2.3 1.5000 - 4.5000 g/dL 2.3000 Glucose 86 70.0000 - 100.00 00 mg/dL 86.0000 Potassium (K) 4.2 3.5000 - 5.1000 mmol/L 4.20 00 Protein, Total 7 6.4000 - 8.3000 g/dL 7.000 0 Sodium (Na) 613 247.8671 - 145.0 000 mmol/L 142.0000 Aspartate Aminotransferase (AST/SGOT) 14 5.0000 - 34.0000 U/L 14.0000 Bilirubin, Total 0.2 0.2000 - 1.2000 mg/dL 0. 2000 BUN/Creatinine Ratio 16.2162 16.2162 Calcium 10.2 8.4000 - 10.2000 mg/dL 10.20 00 Chloride 106 98.0000 - 107.00 00 mmol/L 106.0000 Urea (BUN) 12 7.0000 - 21.0000 mg/dL 12.00 00 CBC with Diff Reviewed date:04/13/2024 12:05:05 PM Interpretation: Performing Lab: Notes/Report: BASO # 0.1332 0.0000 - 0.8000 x10 0.1332 BASO % 1.822 0.0000 - 1.7000 % 1.8220 EO # 0.0832 0.0300 - 0.4400 x10 0.0832 EO % 1.139 0.6000 - 7.3000 % 1.1390 Hematocrit 41.55 37.7000 - 53.7000 % 41.5500 Hemoglobin 12.94 10.8000 - 14.2000 g/dL 12.94 00 LYMPH # 2.667 1.0900 - 2.9900 x10 2.6670 LYMPH % 36.5 18.0000 - 48.3000 % 36.5000 MCH 29.79 27.0000 - 31.2000 pg 29.7900 MCHC 31.13 31.8000 - 35.4000 g/dL 31.13 00 MCV 95.7 81.1000 - 96.0000 fL 95.7000 MONO # 0.5613 0.2400 - 0.7900 x10 0.5613 MONO % 7.68 4.4000 - 12.7000 % 7.6800 MPV 7.301 6.9000 - 10.6000 fL 7.3010 NEUT # 3.864 1.6300 - 6.9600 x10 3.8640 NEUT % 52.86 39.3000 - 73.7000 % 52.8600 PLT 270.4 155.0000 - 366.0000 x10 270. 4000 RBC 4.34 3.6000 - 4.6900 x10 4.3400 RDW 12.61 11.5000 - 14.5000 % 12.6100 WBC 7.309 3.7000 - 10.1000 x10 7.3090 Chlamydia and Gonorrhea Pane l Reviewed date:03/17/2024 12:48:44 PM Interpretation: Performing Lab: Notes/Report: Chlamydia trachomatis Not Detected Not Detected Neisseria gonorrhoeae Not Detected Not Detected Hepatitis B Surface Antibody Reviewed date:04/13/2024 12:05:05 PM Interpretation: Performing Lab: Notes/Report: Hepatitis B Surface Antibody 0.2000 - Hepatitis B Surface Antigen Reviewed date:04/13/2024 12:05:05 PM Interpretation: Performing Lab: Notes/Report: Hepatitis B Surface Antigen 0.3200 Nonreactive Hepatitis B Total Core Antib richard Reviewed date:04/13/2024 12:05:05 PM Interpretation: Performing Lab: Notes/Report: Hepatitis B Total Core Antibody 0.1600 < 0.8000 HCV AB with Reflex to Quanti ty and Reflex to Genotyping Reviewed date:03/23/2024 04:12:32 PM Interpretation: Performing Lab: Notes/Report: HCV Qnt Interp N/R HCV Qnt (IU/mL) N/R HCV Qnt (log IU/mL) N/R Hepatitis C Antibody (Genotype Reflex) NON REACTIVE NON REACTIVE Hepatitis C Virus Genotype b y Sequencing N/R HIV Ag/Ab with Reflex to HIV Types 1 and 2 Antibody Differentiation Reviewed date:04/13/2024 12:05:05 PM Interpretation: Performing Lab: Notes/Report: HIV Ag/Ab (HIV 1 and 2 Antibody Reflex) NON-REACTIVE Nonreactive Syphilis with Reflex to RPR Titer and TP-PA Confirmation Reviewed date:04/13/2024 12:05:05 PM Interpretation: Performing Lab: Notes/Report: Syphilis (Titer and TP-PA Reflex) Nonreactive Nonreactive T. vaginalis Reviewed date:03/17/2024 12:48:45 PM Interpretation: Performing Lab: Notes/Report: Trichomonas vaginalis Not Detected Not Detected TSH Reviewed date:03/23/2024 04:12:38 PM Interpretation: Performing Lab: Notes/Report: TSH 1.7 0.35-4.94 uIU/ml Normal Result analyzed by [facility] Hepatitis C Virus Genotype b y Sequencing Reviewed date:03/23/2024 04:12:24 PM Interpretation: Performing Lab: Notes/Report: Hepatitis C Virus Genotype b y Sequencing N/R TSH Reviewed date:04/13/2024 12:05:04 PM Interpretation: Performing Lab: Notes/Report: TSH 1.7 Hepatitis (HCV) Quant NAAT w /Reflex to Genotyping ([facility]) Reviewed date:05/03/2024 11:41:14 AM Interpretation: Performing Lab: Notes/Report: HCV Qnt Interp N/R HCV Qnt (IU/mL) N/R HCV Qnt (log IU/mL) N/R Reason For Referral No Information Medications Medication SIG (Take, Route, Frequency, Duration) Notes Start Date End Date Status Wellbutrin XL 300 MG 1 tablet in the morning Orally Once a day for 30 days Active QUEtiapine Fumarate 50 MG 1 tablet at bedtime Orally at bedtime for 30 days deliver to [employer] 04/27/2024 Active Propranolol HCl 10 MG 1 tablet Orally three times daily for 30 days As needed Active Narcan 4 MG/0.1ML as directed Nasally as directed deliver to [facility] 04/11/2024 Active Cyproheptadine HCl 4 MG 1 tablet Orally three times a day for 30 days deliver to [employer] 05/31/2024 09/28/2024 Active lamoTRIgine 25 MG 2 tablets Orally daily for 30 days Active Social History Tobacco Use: Social History Observation Description Date Details (start date - stop date) Current Smoker 02/12/2018 - NA Sex Assigned At : Social History Observation Description Sex Assigned At Female Tobacco Control (Standard) Question Answer Notes Tobacco use: Current smoker When did you start smoking? 02/12/2018 How often do you smoke cigarettes? Every day How many cigarettes a day do you smoke? 6-10 Are you interested in quitting? 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) Active confirmed Problem Insomnia (008269941) Other insomnia (G47.09) Active confirmed Problem Generalized anxiety disorder (45015600) Anxiety, generalized (F41.1) Active confirmed Problem Chronic insomnia (407236178) Chronic insomnia (F51.04) Active confirmed Problem Opioid dependence (42538994) Opiate dependence, continuous (F11.20) Active confirmed Vital Signs Heart Rate 88 /min 05/31/2024 Temperature 98.9 degrees Fahrenheit 05/31/2024 Respiratory Rate 16 /min 05/31/2024 Oximetry 98 % 05/31/2024 Blood pressure diastolic 63 mm Hg 05/31/2024 Weight-kg 50.98 kg 05/31/2024 Height 65 in 05/31/2024 Blood pressure systolic 109 mm Hg 05/31/2024 Weight 112.4 lbs 05/31/2024 BMI 18.7 kg/m2 05/31/2024 Encounters Encounter Location Date Provider Diagnosis [facility] [address] [address] 03/07/2024 Nereida Yee Opiate dependence, continuous F11.20 ; Other stimulant abuse, uncomplicated F15.10 ; Moderate major depression F32.1 ; Anxiety, generalized F41.1 ; Sinus tachycardia R00.0 ; Other insomnia G47.09 ; Tobacco dependence F17.200 ; High risk heterosexual behavior Z72.51 and Body mass index [BMI] 19.9 or less, adult Z68.1 [facility] [address] [address] 03/16/2024 Cinda Parra Other insomnia G47.0 9 [facility] [address] [place] [id number] 03/30/2024 Chanda Baumann Anxiety, generalized F41.1 [facility] [address] [address] 04/06/2024 Chanda Baumann Anxiety, generalized F41.1 [facility] [address] [address] 04/26/2024 Chanda Baumann Anxiety, generalized F41.1 and Chronic insomnia F51.04 [facility] [address] [address] 05/31/2024 Chanda Baumann Body mass index [BMI ] 19.9 or less, adult Z68.1 [facility] [address] [address] 05/24/2024 Chanda Baumann Body mass index [BMI ] 19.9 or less, adult Z68.1 [facility] [address] [address] 04/11/2024 Chanda Baumann [facility] [address] [address] 05/30/2024 Cinda Parra Body mass index [BMI ] 19.9 or less, adult Z68.1 Assessments Encounter Date Diagnosis (ICD Code) Assessment Notes Treatment Notes Treatment Clinical Notes Section Notes 03/07/2024 Other stimulant abuse, uncomplicated (ICD-10 - F15.10) Continue treatment, meetings, peer support, CBT. 03/07/2024 Opiate dependence, continuous (ICD-10 - F11.20) Continue treatment, meetings, peer support, CBT. 03/16/2024 Other insomnia (ICD-10 - G47.09) RTC if symptoms worsen or do not improve 03/30/2024 Anxiety, generalized (ICD-10 - F41.1) 04/06/2024 Anxiety, generalized (ICD-10 - F41.1) 04/26/2024 Anxiety, generalized (ICD-10 - F41.1) 04/26/2024 Chronic insomnia (ICD-10 - F51.04) 05/24/2024 Body mass index [BMI] 19.9 or less, adult (ICD-10 - Z68.1) 05/30/2024 Body mass index [BMI] 19.9 or less, adult (ICD-10 - Z68.1) 05/31/2024 Body mass index [BMI] 19.9 or less, adult (ICD-10 - Z68.1) 03/07/2024 Moderate major depression (ICD-10 - F32.1) Continue current medictions, discussed red flags. Continue CBT 03/07/2024 Anxiety, generalized (ICD-10 - F41.1) Continue current medictions, discussed red flags. Continue CBT 03/07/2024 Sinus tachycardia (ICD-10 - R00.0) Continue current medictions 03/07/2024 Other insomnia (ICD-10 - G47.09) Continue current medictions. Discussed sleep hygiene 03/07/2024 Tobacco dependence (ICD-10 - F17.200) Encouraged cessation, pt not ready to quit 03/07/2024 High risk heterosexual behavior (ICD-10 - Z72.51) Screening labs 03/07/2024 Body mass index [BMI] 19.9 or less, adult (ICD-10 - Z68.1) Continue current medication. Protein supplement BID 03/07/2024 Other Will obtain baseline and screening lab work, will notify pt of any POC changes r/t results. Questions answered. Pt expressed understanding and agrees to POC. Plan Of Treatment No Information Insurance Providers Payer Name Payer Address Payer Phone Subscriber Number Group Number Insured Name Patient Relationship to Insured Coverage Start Date Coverage End Date Dottie [employer] [address] [place], [place] [id number] Danielle Goode Child - Insured does not have Financial Responsibility (includes legally adopted child) 4 [employer] Medicaid [address] [address] [place], [place] [id number] Geovanna Goode Self - patient is the insured 3 Medical (General) History Medical History History ICD Code tachycardia Surgical History Surgery Date(Month/Year) T&A 2006 Hospitalization History Reason Date(Month/Year) Solution [facility] [place] -Comp leted [facility]- [facility]bl[facility] pleted [facility]-Walk off [facility]-Walk off
[2024-09-28 20:04] LABS: Hematocrit 35.6 % (37.0-47.0); Hemoglobin 12.1 g/dL (12.2-16.2); Immature Granulocytes % 0.2 %; Mean Corpuscular HGB Conc 34.0 g/dL (31.8-35.4); Mean Corpuscular Hemoglobin 30.3 pg (27.0-31.2); Mean Corpuscular Volume 89.2 fl (81-99); Nucleated Red Blood Cells % 0 %; Platelet Count 309 K/mm3 (142-424); Red Blood Count 3.99 M/mm3 (4.20-5.40); Red Cell Distribution Width-SD 38.3 fL; White Blood Count 10.0 K/mm3 (4.8-10.8)
[2024-09-28 20:07] LABS: Alanine Aminotransferase 18 U/L (12-78); Albumin Level 4.8 g/dl (3.5-5.0); Albumin/Globulin Ratio 1.9 (1.1-1.8); Alkaline Phosphatase 51 U/L (38-126); Anion Gap 18.0 mEq/L (5-15); Aspartate Amino Transferase 24 U/L (14-36); Bilirubin,Total 0.3 mg/dl (0.2-1.3); Blood Urea Nitrogen 8 mg/dl (7-17); Calcium 9.6 mg/dl (8.4-10.2); Carbon Dioxide 22 mmol/L (22.0-30.0); Chloride 102 mmol/L (98-107); Creatinine Clearance Estimated 98 mL/min (50-200); Creatinine,Serum 0.70 mg/dl (0.52-1.04); Estimated Glomerular Filt Rate 104 ml/min (>60); GFR (African American) 125 ML/MIN (>60); Globulin 2.5 g/dL (1.3-3.2); Glucose 121 mg/dl (74-100); Sodium 139 mmol/L (136-145); Total Protein,Serum 7.3 g/dl (6.3-8.2)
[2024-09-28] MEDS: LACTATED RINGERS 1000ML 1,000 ML 999 ML IV (20:08)
[2024-09-28 20:12] LABS: D-Dimer < 0.25 ug/mL (0.0-0.5)
[2024-09-28 20:22] LABS: HCG Qualitative, Serum Negative (Negative)
[2024-09-28 20:26] LABS: T4 (Thyroxine) 8.2 ug/dl (5.53-11.0)
[2024-09-28 20:37] LABS: Troponin I < 0.01 ng/ml (0.00-0.034)
[2024-09-28 20:38] LABS: Poikilocytosis 1+; Potassium 3.0 mmoL/L (3.5-5.1); Total Cells Counted 100
[2024-09-28 20:39] LABS: Ovalocytes 1+; Thyroid Stimulating Hormone 3.67 uIU/mL (0.465-4.68)
--- NOTE | 2024-09-28 20:39 | PC.NURSE ---
Lab calls K of 3.0, Dr Freeman notified verbally.
[2024-09-28 20:40] LABS: Anisocytosis 1+; Macrocytosis 1+; Microcytosis 1+
--- NOTE | 2024-09-28 20:47 | PC.NURSE ---
pt ambulatory to restroom with slow steady gait after powderman socks were placed to obtain urine for testing.
[2024-09-28] MEDS: POTASSIUM CHLORIDE 20MEQ TAB 40 MEQ PO (20:49)
[2024-09-28 20:59] LABS: Microscopic, Urine URINE MICROSCOPIC (MICROSCOPIC)
[2024-09-28 21:04] LABS: Bilirubin,Urine Negative (Negative); Color,Urine YELLOW (Yellow); Glucose,Urine (UA) Negative (Negative); Ketones,Urine Negative (Negative); Leukocyte Esterase,Urine Negative (Negative); PH,Urine 8.0 (5.0-8.5); Protein,Urine Negative (Negative); Specific Gravity, Urine 1.015 (1.005-1.030); Urobilinogen,Urine 0.2 EU/dl (0.2)
[2024-09-28 21:19] LABS: Benzodiazepines Screen,Urine Negative ng/ml (<200)
[2024-09-28 21:20] LABS: Amphetamine/Metha Screen,Urine Negative ng/ml (<1000); Barbiturates Screen,Urine Negative ng/ml (<200)
[2024-09-28 21:22] LABS: Methadone Screen,Urine Negative ng/ml (<300)
[2024-09-28 21:23] LABS: Opiate Screen,Urine Negative ng/ml (<300)
[2024-09-28 21:24] LABS: Phencyclidine Screen,Urine Negative ng/ml (<25)
[2024-09-28 21:37] LABS: Hepatitis C Ab Qual. W/ RFX NEGATIVE (Negative)
[2024-09-28 22:22] LABS: Amorphous Sediment,Urine 1+ /lpf; Bacteria,Urine 1+ /lpf
== END 2024-09-28 22:20 | disposition home or self-care (01) ==
PROVIDERS: Emergency Provider Emergency Medicine
DX: R55 Syncope and collapse (principal); F12.10 Cannabis abuse, uncomplicated; E87.6 Hypokalemia; F41.9 Anxiety disorder, unspecified; F33.9 Major depressive disorder, recurrent, unspecified; F17.210 Nicotine dependence, cigarettes, uncomplicated
CPT/HCPCS: 80053; 80307; 80320; 81001; 84436; 84443; 84484; 84703; 85007; 85025; 85027; 85378; 86803; 87389; 93005; 96361; 96365; 99291; J3480; J7120